=== PATIENT | female | born 1995 | race African-American/Black ===

== ENCOUNTER 2023-03-30 08:24 | Emergency (ER) | payer OTHER, SELFPAY ==
[2023-03-30] VITALS (7 sets, daily range): BP systolic 114–150; BP diastolic 67–74; PULSE 89–105; RESP 16–18; TEMP 37.3–37.6; O2SAT 98–99; BMI 32.1
--- NOTE | 2023-03-30 08:54 | ED.FEVER ---
HPI - Fever General Chief Complaint: Fever Stated Complaint: 17 wks body aches fever night sweats Time Seen by Provider: 03/30/23 08:47 Source: patient Mode of arrival: Ambulatory Limitations: no limitations History of Present Illness HPI Narrative: 27-year-old female proximally 17 weeks by dates has had prior ultrasound who presents with complaint of fevers, nasal congestion cough cold, headache, muscle aches that has been going on for last several days. Patient reports temp up to 102 F she states her [id number] child at home has been ill. She tried to get into see with her primary care physician but can not get an appointment until April. Patient denies any chest pain or pressure. No shortness of breath. No nausea or vomiting no other GI or urinary symptoms. Patient does note that she was tested positive for chlamydia and was treated 3 weeks ago. She is noticed some left lower quadrant discomfort over the past week not getting any worse or better. It is intermittent but she notices more when she pushes on that area. She has noted some brown flecks when she wipes in the genital area but no dysuria, urgency or frequency no other discharge. Normal stools. Related Data Previous Rx's Medication Instructions Recorded amoxicillin 500 mg tablet 500 mg PO TID 7 days #21 tabs 03/30/23 Allergies Allergy/AdvReac Type Severity Reaction Status Date / Time No Known Drug Allergies Allergy Verified 03/30/23 08:36 Review of Systems Review of Systems ROS Unobtainable: All systems reviewed & are unremarkable except as noted in HPI and below Patient History Social History Smoking Status: Never smoker Smoking Status: Never smoker Substance Use Type: does not use Exam Narrative Exam Narrative: GEN: well nourished, well appearing female, alert and oriented x 3, patient appears to be in mild distress. HEENT: Atraumatic, pupils are equal round reactive to light, extraocular movements are intact, patient has bilateral nasal congestion, TMs are clear, retracted with slight fluid, no erythema, there is no conjunctival pallor. Throat is clear without any exudates, erythema, tonsillar enlargement or uvular deviation HEART: Regular rate and rhythm without murmur, clicks, rubs. LUNGS:Lungs clear to auscultation, no wheezes, rales, crackles, chest moves symmetrically ABD:bowel sounds normal, soft, non-tender on examination, gravid, no guarding, rebound, rigidity, no masses noted, no hepatosplenomegaly :No CVA tenderness MSCL: Non-tender, no muscle atrophy, muscles strength 5/5 upper and lower extremities, full range of motion, normal gait NEURO:CN 2-12 intact, sensation normal SKIN: No rash, erythema or other skin changes Initial Vital Signs Initial Vital Signs: Vital Signs Temperature 99.2 F 03/30/23 08:30 Pulse Rate 99 H 03/30/23 08:30 Respiratory Rate 18 03/30/23 08:30 Blood Pressure 125/72 03/30/23 08:30 Pulse Oximetry 98 03/30/23 08:30 Oxygen Delivery Method Room Air 03/30/23 08:30 Course Orders Ordered: ED Orders 03/30/23 09:06 OB <= 14 weeks fetus Stat 03/30/23 09:17 Chlamydia Gonorrhea PCR -URINE Stat Respiratory Panel (Film Array) Stat 03/30/23 09:19 UA Complete [Urinalysis and Microscopic] Stat Urine Culture Stat Vital Signs Vital signs: Vital Signs - 8 hr 03/30/23 11:07 03/30/23 11:30 03/30/23 12:00 Temperature Pulse Rate 89 101 H 102 H Respiratory Rate 18 16 16 Blood Pressure 114/71 128/74 119/67 Pulse Oximetry 99 99 99 Oxygen Delivery Method Room Air Room Air Room Air 03/30/23 12:45 Temperature 99.7 F H Pulse Rate 98 H Respiratory Rate 16 Blood Pressure 124/72 Pulse Oximetry 98 Oxygen Delivery Method Room Air MDM - Fever Lab Data Labs: Lab Results 03/30/23 03/30/23 Range/Units 09:17 09:19 Urine Color Yellow Urine Appearance Sl cloudy Urine pH 5.5 (4.5-8.0) Ur Specific [place] 1.025 (1.000-1.035) Urine Protein Trace H (Negative) Urine Glucose (UA) Negative (Negative) g/dL Urine Ketones Trace H (NEGATIVE) Urine Occult Blood Trace-intact (Negative) Urine Nitrate Negative (Negative) Urine Bilirubin Negative (NEGATIVE) Urine Urobilinogen 0.2 (0.2) E.U./dL Ur Leukocyte Esterase 1+ H (NEGATIVE) Urine RBC 1-5/hpf (0-5/HPF) Urine WBC 5-10/hpf H (0-5/HPF) Ur Squamous Epith Cells 5-10 /hpf H (0-5/HPF) Urine Bacteria Few (2-10) H (None) Ur Culture Indicated? Specimen cultured Chlamy pneumoniae PCR Not detected (Not Detect) Adenovirus (PCR) Not detected (Not Detect) B.parapertussis DNA PCR Not detected (Not Detecte) Ur Chlamydia DNA (PCR) Detected H Coronavirus OC43 (PCR) Not detected (Not Detect) Coronavirus HKU1 (PCR) Not detected (Not Detect) Coronavirus 229E (PCR) Not detected (Not Detect) SARS-CoV-2 (PCR) Not detected (Not Detecte) Coronavirus NL63 (PCR) Not detected (Not Detect) Human Metapneumovir PCR Not detected (Not Detect) Influenza Type A (PCR) Not detected (Not Detect) Influenza Type B (PCR) Detected H (Not Detect) M. pneumoniae (PCR) Not detected (Not Detect) Parainfluenza 1 (PCR) Not detected (Not Detect) Parainfluenza 2 (PCR) Not detected (Not Detect) Parainfluenza 3 (PCR) Not detected (Not Detect) Parainfluenza 4 (PCR) Not detected (Not Detect) RSV (PCR) Not detected (Not Detect) Entero/Rhino (PCR) Not detected (Not Detect) N gonorrhoeae DNA (PCR) Not detected Imaging Data US - OB: Radiologist's Impression: [place] [address] Ultrasound Report Signed Patient: Margaret Christensen MR#: [id number] : 1995 Acct:[id number] Age/Sex: 27 / F Date of Service: 03/30/23 Loc: ED Accession Number: [id number] Procedure: US OB <= 14 weeks fetus Ordering Provider: Joleen Garcia D.O. PROCEDURE: US OB <= 14 WEEKS FETUS INDICATIONS: LLQ pain, 17 weeks OUTSIDE/PRIOR DATING DATA: Last menstrual period (LMP): December 04, 2022. LMP-based estimated date of delivery (STANISLAW): September 10, 2023. First dating scan (date and location): 02/16/23, [facility]. Estimated date of delivery (STANISLAW) from first dating scan: September 12, 2023. TECHNIQUE: Real-time scanning was performed of the fetus, with image documentation and biometric measurements. COMPARISON: [facility] Ultrasound, US, US OB < 14 WEEKS, 02/16/2023, 16:13. FINDINGS: General: A single living intrauterine gestation is present. Presentation: Breech. Placenta: Placental position is posterior , without previa. Amniotic fluid index: Subjectively within normal limits. heart rate: 163 beats per minute. Maternal cervical canal: 3.3 cm long. Normal lower limit is 2.5 cm. Miscellaneous: There is a 7.2 x 2.1 x 1.3 cm venous [place] with lobulated margins. IMPRESSION: 1. Single live intrauterine gestation in breech position. 2. Relatively large placental venous [place] with lobulated margins as above. We strive to produce accurate, complete, and clear reports of imaging services. To assist us in improving patient care, this report was composed using standard report templates and voice recognition software. Therefore, it may contain abnormal punctuation, insertions and/or omissions. Occasional wrong-word or sound-alike substitutions may occur. Though we review the report and make efforts to correct it, we do recommend that the report be read carefully in proper context to recognize any text inaccuracies. Dictated by: Tierra Barajas M.D. on 03/30/2023 at 10:03 Approved by: Tierra Barajas M.D. on 03/30/2023 at 10:07 [facility] Narrative Medical decision making narrative: 27-year-old female with recent upper respiratory symptoms cold cough nasal congestion headache some chest tightness and muscle aches. Patient clinically appears to have likely viral syndrome. She does have a child at home who has symptoms as well. She notes that she has also had some left lower quadrant tenderness for the past week, she is 17 weeks . Denies any GI or urinary symptoms but does note she tested positive for chlamydia proximally were to 3 weeks ago was treated with antibiotics. After discussion plan for respiratory panel, will obtain OB ultrasound she has been having care. We will retest for gonorrhea chlamydia as patient is concerned. Respiratory panel is positive for influenza B, with patient offered Tamiflu. She defers, discussed risk/benefits. GC is positive chlamydia. Negative for gonorrhea, UA was cultures. OB ultrasound shows large placental lakes 7.2 x 2.1 x 3.1 cm with lobulated margins. Discussed with OBGYN follow up findings from above. They would agree with plan to repeat azithromycin and/or the amoxicillin and pelvic rest with follow up with OB to continue to monitor. Discussed findings with patient we will hold off on Tamiflu, will do amoxicillin. Patient had azithromycin 1gram. States that her partner was treated, was tested and reportedly tested negative after treatment. She states he has only had 1 sexual contact since after they were both treated and waited a week. She was aware that there was some bleeding from before unsure of the child. Discussed pelvic rest and need for follow-up. Discharge Plan Departure Patient Disposition: Home Clinical Impression: Influenza B Instructions: DI for Influenza -- Adult Activity Restrictions/Additional Instructions: You did test positive for Influenza B today, influenza typically last 7-10 days total. You also tested for chlamydia on your test today, your gonorrhea test was negative. You were given antibiotics for your infection. Make sure to follow-up with your OBGYN to make sure that you are rechecked and test negative. No sexual activity for at least 1 week after completing antibiotics. Any partners need to be notified and treated prior to sexual activity. Your ultrasound does show some blood, it is 7.2 x 2.1 x 3.1 cm with lobulated margins. Share this information with your supervising bailiff and a copy of your report is included. Make sure you are drinking plenty of fluids. You can take Tylenol up to a 1000 mg every 6 hours as needed for headaches or fevers. Prescription for amoxicillin, 1 tablet 3 times daily times 7 days [facility] [place]. Please return for new or worsening symptoms, increasing abdominal back or flank pain, new vaginal bleeding, new chest pain, shortness of breath, nausea or vomiting, or other new or worsening GI symptoms. Prescriptions: New amoxicillin 500 mg tablet 500 mg PO TID 7 Days Qty: 21 0RF Stand Alone Forms: Patient Portal/API, Work Release Note
--- NOTE | 2023-03-30 09:06 | DI.US.S_ITS ---
PROCEDURE: US OB <= 14 WEEKS FETUS INDICATIONS: LLQ pain, 17 weeks OUTSIDE/PRIOR DATING DATA: Last menstrual period (LMP): December 04, 2022. LMP-based estimated date of delivery (STANISLAW): September 10, 2023. First dating scan (date and location): 02/16/23, [facility]. Estimated date of delivery (STANISLAW) from first dating scan: September 12, 2023. TECHNIQUE: Real-time scanning was performed of the fetus, with image documentation and biometric measurements. COMPARISON: [facility] Ultrasound, US, US OB < 14 WEEKS, 02/16/2023, 16:13. FINDINGS: General: A single living intrauterine gestation is present. Presentation: Breech. Placenta: Placental position is posterior , without previa. Amniotic fluid index: Subjectively within normal limits. heart rate: 163 beats per minute. Maternal cervical canal: 3.3 cm long. Normal lower limit is 2.5 cm. Miscellaneous: There is a 7.2 x 2.1 x 1.3 cm venous [place] with lobulated margins. IMPRESSION: 1. Single live intrauterine gestation in breech position. 2. Relatively large placental venous [place] with lobulated margins as above. We strive to produce accurate, complete, and clear reports of imaging services. To assist us in improving patient care, this report was composed using standard report templates and voice recognition software. Therefore, it may contain abnormal punctuation, insertions and/or omissions. Occasional wrong-word or sound-alike substitutions may occur. Though we review the report and make efforts to correct it, we do recommend that the report be read carefully in proper context to recognize any text inaccuracies. Dictated by: Tierra Barajas M.D. on 03/30/2023 at 10:03 Approved by: Tierra Barajas M.D. on 03/30/2023 at 10:07
[2023-03-30 10:13] LABS: Adenovirus Not Detected (Not Detect); B. parapertussis Not Detected (Not Detecte); Bordetella pertussis Not Detected (Not Detect); Chlamydophila pneumoniae Not Detected (Not Detect); Coronavirus 229E Not Detected (Not Detect); Coronavirus HKU1 Not Detected (Not Detect); Coronavirus NL 63 Not Detected (Not Detect); Coronavirus OC43 Not Detected (Not Detect); Human Metapneumovirus Not Detected (Not Detect); Human Rhinovirus/Enterovirus Not Detected (Not Detect); Influenza A Not Detected (Not Detect); Influenza B Detected (Not Detect); Mycoplasma pneumoniae Not Detected (Not Detect); Parainfluenza Virus 1 Not Detected (Not Detect); Parainfluenza Virus 2 Not Detected (Not Detect); Parainfluenza Virus 3 Not Detected (Not Detect); Parainfluenza Virus 4 Not Detected (Not Detect); Respiratory Syncytial Virus Not Detected (Not Detect); SARS- CoV-2 Not Detected (Not Detecte)
[2023-03-30 10:14] LABS: Appearance Urine UA SL CLOUDY; Bilirubin Urine UA NEGATIVE (NEGATIVE); Color Urine UA YELLOW; Glucose Urine UA NEGATIVE (Negative); Ketones Urine UA TRACE (NEGATIVE); Leukocyte Esterase Urine UA 1+ (NEGATIVE); Nitrite Urine UA NEGATIVE (Negative); Occult Blood Urine UA TRACE-INTACT (Negative); Protein Urine UA TRACE (Negative); Specific Gravity Urine UA 1.025 (1.000-1.035); Urobilinogen Urine UA 0.2 E.U./dL (0.2)
[2023-03-30 10:16] LABS: pH Urine UA 5.5 (4.5-8.0)
[2023-03-30 10:19] LABS: Bacteria Urine Few (2-10); Culture Indicated Urine Specimen Cultured; RBC Urine 1-5/HPF (0-5/HPF); Squamous Epithelial Cell Urine 5-10 /HPF (0-5/HPF); WBC Urine 5-10/HPF (0-5/HPF)
[2023-03-30 11:20] LABS: Urine Chlamydia DETECTED; Urine N gonorrhoeae NOT DETECTED
== END 2023-03-30 12:54 | disposition home or self-care (01) ==
PROVIDERS: Emergency Provider Emergency Medicine
DX: O98.812 Other maternal infectious and parasitic diseases complicating pregnancy, second trimester (principal); J10.1 Influenza due to other identified influenza virus with other respiratory manifestations; R07.9 Chest pain, unspecified; Z3A.17 17 weeks gestation of pregnancy; Z20.822 Contact with and (suspected) exposure to COVID-19
CPT/HCPCS: 76801; 81001; 87077; 87086; 87147; 87491; 87591; 87633; 99283

== ENCOUNTER → 2023-06-24 12:48 | Outpatient (CLI) | payer OTHER, SELFPAY ==
[2023-06-24 14:47] LABS: Hematocrit 36.5 % (36-46)
[2023-06-24 14:49] LABS: GTT (PREG) 1 Hour PP 50gm Dose 145 mg/dL (76-139)
[2023-06-24 15:54] LABS: Urine N gonorrhoeae NOT DETECTED
[2023-06-24 15:55] LABS: Urine Chlamydia NOT DETECTED
== END ==
PROVIDERS: Referring Provider Student in an Organized Health Care Education/Training Program; Visit Provider Student in an Organized Health Care Education/Training Program
DX: Z3A.26 26 weeks gestation of pregnancy (principal); O98.819 Other maternal infectious and parasitic diseases complicating pregnancy, unspecified trimester; A74.9 Chlamydial infection, unspecified; Z3A.25 25 weeks gestation of pregnancy
CPT/HCPCS: 36415; 82950; 85014; 85018; 86900; 86901; 87491; 87591

== ENCOUNTER → 2023-07-07 09:57 | Outpatient (CLI) | payer OTHER, SELFPAY ==
[2023-07-07 12:38] LABS: Glucose 1 Hour Gest 123 mg/dL (76-180)
[2023-07-07 12:38] LABS: Glucose Fasting Gestational 63 mg/dL (76-95)
[2023-07-07 13:16] LABS: Glucose Tol Interp,Gestational INTERPRETATION
[2023-07-07 13:53] LABS: Glucose 2 Hour Gest 84 mg/dL (76-155)
[2023-07-07 14:02] LABS: Glucose 3 Hour Gest 106 mg/dL (76-140)
== END ==
LOC: LAB 09:58
PROVIDERS: Referring Provider Student in an Organized Health Care Education/Training Program; Visit Provider Student in an Organized Health Care Education/Training Program
DX: O99.810 Abnormal glucose complicating pregnancy (principal)
CPT/HCPCS: 36415; 82951; 82952

== ENCOUNTER → 2023-08-16 12:35 | Outpatient (CLI) | payer OTHER, SELFPAY | PROVIDERS: Visit Provider Obstetrics & Gynecology | DX: Z34.83 Encounter for supervision of other normal pregnancy, third trimester (principal); R82.90 Unspecified abnormal findings in urine; Z3A.36 36 weeks gestation of pregnancy | CPT/HCPCS: 87086; 87653 ==

== ENCOUNTER → 2023-08-31 11:36 | Outpatient (CLI) | payer OTHER, SELFPAY ==
--- NOTE | 2023-08-31 11:38 | DI.US.S_ITS ---
PROCEDURE: US OB LIMITED INDICATIONS: GROWTH CHECK OUTSIDE/PRIOR DATING DATA: Last menstrual period (LMP): December 04, 2022. LMP-based estimated date of delivery (STANISLAW): September 10, 2023. First dating scan (date and location): February 16, 2023. Estimated date of delivery (STANISLAW) from first dating scan: September 12, 2023. The calculations are made using the ultrasound STANISLAW of September 10, 2023. TECHNIQUE: Real-time scanning was performed of the fetus, with image documentation and biometric measurements. Endovaginal scanning: Not performed COMPARISON: None. FINDINGS: General: A single living intrauterine gestation is present. Presentation: Vertex. Placenta: Placental position is posterior/fundal , without previa. Amniotic fluid index: 7.7 cm, normal range is 5-24 cm. Single deepest vertical pocket is 3.4 cm. heart rate: 150 beats per minute. Maternal cervical canal: 4.5 cm long. Normal lower limit is 2.5 cm. biometrics: Biparietal diameter: 8.7 cm, 35 weeks 0 days Head circumference: 31.4 cm, 35 weeks 1 day Abdominal circumference: 36.2 cm, 40 weeks 1 day Femur length: 7.1 cm, 36 weeks 3 days Clinically estimated gestational age: 38 weeks 4 days Composite gestational age from present scan: 36 weeks 5 days Estimated weight and percentile: 3088 g, 53% Other: Not applicable. IMPRESSION: 1. Single live intrauterine gestation with a composite gestational age of 36 weeks, 5 days which is concordant with dates by initial scan. 2. Estimated weight percentile of 53%. We strive to produce accurate, complete, and clear reports of imaging services. To assist us in improving patient care, this report was composed using standard report templates and voice recognition software. Therefore, it may contain abnormal punctuation, insertions and/or omissions. Occasional wrong-word or sound-alike substitutions may occur. Though we review the report and make efforts to correct it, we do recommend that the report be read carefully in proper context to recognize any text inaccuracies. Dictated by: Tierra Barajas M.D. on 08/31/2023 at 14:21 Approved by: Tierra Barajas M.D. on 08/31/2023 at 14:25
== END ==
LOC: US 11:36
PROVIDERS: Referring Provider Obstetrics & Gynecology; Visit Provider Obstetrics & Gynecology
DX: O26.843 Uterine size-date discrepancy, third trimester (principal); Z3A.36 36 weeks gestation of pregnancy
CPT/HCPCS: 76815

== ENCOUNTER 2023-09-12 08:52 | Outpatient (CLI) | payer OTHER, SELFPAY ==
--- NOTE | 2023-09-12 16:31 | P.TNLD_ITS ---
Visit Information Visit Information Date of evaluation: 09/12/23 Primary OB Provider: Alli Barnett On-call OB Provider: Tina Art Reason for Evaluation: Yes non-stress test Comments/Additional reasons for admission: Unable to be seen in office secondary to provider schedule change, pt sent to for NST and cervical check Vital Signs Vital Signs: maternal VSS per OBIX record PFSH Medical History depression Surgical History Anesthesia [place] teeth extracted Family History Father Hypertension Family/Other Breast cancer Mother Prediabetes History of bipolar disorder Grandfather Stroke Social History marital status: unmarried,single number of children: 1 household members: children and other (mother) lives independently: Yes caregiver/support person: Yes housing: [facility] ([facility]) pets and animals: No education level: college (some college) occupational status: employed (active duty [employer]) current occupational exposures/hazards: No (not since Dx) special josue needs: No travel history: over 6 months ago seatbelt use: always water heater temp set < 120 deg: No working smoke detector in home: Yes fire extinguisher in home: No carbon monox detector in home: No firearms in home: No do you feel safe at home: Yes Smoking Status: Never smoker second hand exposure: Yes (pt's mother smokes, not in the house or the car) alcohol intake: never substance use type: does not use during the past year weight has: other well-balanced diet: rarely or never daily servings fruits/ve-1 caffeine: Yes (very occasional cup coffee) Type(s) of exercise: walking Review of Systems Review of Systems Narrative: pt states increasing discomforts of , denies vaginal bleeding, LOF. ROS: Yes All systems reviewed with the patient and are negative except as otherwise documented Exam Vital Signs (past 8 hours): BP 130/78 HR 72 Narrative Exam Narrative: comfortable appearing, resting in bed Const General: cooperative Nutritional Appearance: obese Orientation: alert, awake and oriented x3 Limitations: mental status not altered HENMT Head: normal to inspection Neck Neck: normal visual inspection Cardio Rhythm: regular rhythm Pulses: normal peripheral pulses GI Inspection: normal to inspection Other: gravid, oumar cephalic 7.5# Other: cl/thk/hi - head remains ballotable Skin General: no rashes or lesions noted Neuro General: patient alert, patient awake and patient oriented x3 Extrem General: normal to inspection Psych Appearance: grossly normal Mental Status: mental status grossly normal Speech and Movement: speech and movement normal Judgment: judgment good Evaluation Evaluation Baseline heart rate: 130 Variability: Moderate (11-25) monitor accelerations: Present Monitor Decelerations: Absent Category of Tracing: Reactive Status: Category l Diagnosis, Plan/Disposition Final Diagnosis (1) Encounter for supervision of other normal , unspecified trimester: Status: Acute Plan/Disposition Plan: 28yo at 40w2d presents to for late term NST Cat 1 tracing with reactive NST maternal VSS/afebrile reviewed exam findings today, consistent with Dr. Barnett's last office exam - head is not engaged within the pelvis at this time plan for interval NST in 48/72h, schedule IOL at that time if indicated strict FM/labor precautions reviewed known GBS+ OB Disposition: home
== END 2023-09-12 10:05 | disposition home or self-care (01) ==
LOC: LABOR 09:04 → OB 09-15 08:23
PROVIDERS: Referring Provider Obstetrics & Gynecology; Visit Provider Obstetrics & Gynecology
DX: O48.0 Post-term pregnancy (principal); Z3A.40 40 weeks gestation of pregnancy
CPT/HCPCS: 59025; G0378; G0379

== ENCOUNTER 2023-09-15 09:25 | Outpatient (CLI) | payer OTHER, SELFPAY | END 2023-09-15 10:42 | disposition home or self-care (01) | LOC: LABOR 09:31 → OB 09-19 06:11 | PROVIDERS: Referring Provider Family Medicine; Visit Provider Family Medicine | DX: O48.0 Post-term pregnancy (principal); Z3A.40 40 weeks gestation of pregnancy | CPT/HCPCS: 59025; 76815; G0378; G0379 ==

== ENCOUNTER 2023-09-17 20:07 | Outpatient (CLI) | payer OTHER, SELFPAY | END 2023-09-17 21:13 | disposition home or self-care (01) | LOC: LABOR 22:36 → OB 09-19 06:13 | PROVIDERS: Referring Provider Obstetrics & Gynecology; Visit Provider Obstetrics & Gynecology | DX: O36.8130 Decreased fetal movements, third trimester, not applicable or unspecified (principal); O48.0 Post-term pregnancy; Z3A.41 41 weeks gestation of pregnancy | CPT/HCPCS: 59025; G0378; G0379 ==

== ENCOUNTER 2023-09-20 19:51 | Inpatient (IN) | payer OTHER, SELFPAY ==
[2023-09-20 20:06] VITALS: BP 140/79
[2023-09-20] MEDS: LACTATED RINGERS 1,000 ML 100 ML IV (20:40)
[2023-09-20] MEDS: miSOPROStoL 25 MCG TABLET 50 MCG VAG (20:57)
[2023-09-20 21:23] LABS: Add Manual Diff / Slide Review NO; Basophils Absolute Auto 0 /uL (0-100); Basophils Percent Auto 0.4 % (0-2); Eosinophils Absolute Auto 100 /uL (0-450); Eosinophils Percent Auto 0.7 % (2-4); Hemoglobin 11.9 g/dL (12.0-16.0); Lymphocytes Absolute Auto 2000 /uL (1100-4500); Lymphocytes Percent Auto 22.9 % (25-40); Mean Corpuscular Hemoglobin 27.1 PG (26-34); Mean Corpuscular Volume 81.9 fL (80-100); Monocytes Absolute Auto 1100 /uL (0-900); Monocytes Percent Auto 12.9 % (3-14); Neutrophils Absolute Auto 5500 /uL (1500-7000); Neutrophils Percent Auto 63.1 % (50-75); Platelet Count 120 X10^3/uL (150-400); Red Cell Distribution Width 15.7 % (11.6-14.8); White Blood Cell Count 8.7 X10^3/uL (4.5-11.0)
[2023-09-20] MEDS: ZOLPIDEM 5 MG TABLET PO (23:25)
[2023-09-20] MEDS: AMPICILLIN 1,000 MG in SODIUM CHLORIDE 0.9% 100 ML 200 MG IV (23:31)
[2023-09-21] VITALS (7 sets, daily range): BP systolic 94–127; BP diastolic 44–81; PULSE 90–111; RESP 14–24; TEMP 36.1–36.5; O2SAT 98–99
[2023-09-21] MEDS: miSOPROStoL 25 MCG TABLET 50 MCG VAG ×2 (03:20→08:28)
[2023-09-21] MEDS: AMPICILLIN 2,000 MG in SODIUM CHLORIDE 0.9% 100 ML 200 MG IV (03:20)
--- NOTE | 2023-09-21 07:12 | PM.OBHP.1 ---
OB HPI Date/Time Date of admission: 09/20/23 Date Patient Seen: 09/21/23 Time Patient Seen: 07:13 History of Present Condition Chief complaint: IUP, 41+4 wks, GBS +, admitted for ripening/induct : 3 Para: 1 Estimated Date of Delivery: 10/10/23 Estimated Gestational Age (weeks): 41+4 Narrative: Margaret Christensen is a 28 year old , admitted now at 41+ 4 weeks gestational age for cervical ripening and induction due to postdatism. course has been largely uneventful with solid early dating and appropriate milestones throughout. She had an elevated 1 hour GDM screen but a completely normal 3 hour GTT. GBS is positive. Indications Indication for induction OB: post dates History of Present care: good care Dating criteria: LMP confirmed by 1st trimester US Ultrasounds: normal 1st trimester US and normal mid trimester US Obstetrical complications: none Medical complications: none Preadmission Labs Blood type: O (+) positive -: Antibody screen: negative, GBS status: positive, HBsAG: negative, HIV: negative and RPR/VDLR: negative -: Chlamydia screen: not detected and Gonorrhea screen: not detected -: Rubella: immune and Varicella: immune HCT: 36.0 HCAB: negative PAP: Normal Quad screen: Normal (AFP testing negative) Cell-free DNA: Low risk male infant 1 hr GTT: 145 3 hr GTT: 1 hr (123), 2 hr (84) and 3 hr (106) Fasting blood glucose: 63 Prior (ies) History: x 1 Evaluation Evaluation Baseline heart rate: 135 Variability: Average (6-10) monitor accelerations: Present Monitor Decelerations: Absent Contraction Frequency (minutes): 8 Uterine Contraction Intensity: Mild Category of Tracing: Reactive Status: Category l PFSH Medical History depression Surgical History Anesthesia [place] teeth extracted Family History Father Hypertension Family/Other Breast cancer Mother Prediabetes History of bipolar disorder Grandfather Stroke Social History marital status: unmarried,single number of children: 1 household members: children and other (mother) lives independently: Yes caregiver/support person: Yes [facility] pets and animals: No education level: college (some college) occupational status: employed (active duty [employer]) current occupational exposures/hazards: No (not since Dx) special josue needs: No travel history: over 6 months ago seatbelt use: always water heater temp set < 120 deg: No working smoke detector in home: Yes fire extinguisher in home: No carbon monox detector in home: No firearms in home: No do you feel safe at home: Yes Smoking Status: Never smoker second hand exposure: Yes (pt's mother smokes, not in the house or the car) alcohol intake: never substance use type: does not use during the past year weight has: other well-balanced diet: rarely or never daily servings fruits/ve-1 caffeine: Yes (very occasional cup coffee) Type(s) of exercise: walking Meds Home Medications and Allergies Home Medications Medication Instructions Recorded Confirmed Type [id number] 400 mcg-om3 35 mg-dha 25 tab PO 05/25/23 09/07/23 History mg-epa 5 mg-fish oil chewable tablet Allergies Allergy/AdvReac Type Severity Reaction Status Date / Time No Known Drug Allergies Allergy Verified 09/07/23 11:43 Review of Systems Review of Systems Narrative: Problem-specific ROS positives included in HPI OB Exam Vital signs Blood Pressure: 113/56 Pulse Rate: 90 Temperature: 97.7 F HENMT Head: normal to inspection, normocephalic and atraumatic Eyes General: appearance normal, both eyes and all related structures Resp Effort & Inspection: normal respiratory effort and able to speak in complete sentences Auscultation: clear to auscultation bilaterally Cardio Rate: regular rate Rhythm: regular rhythm Heart Sounds: S1 normal, S2 normal and no murmurs Extremities Lower extremity: Yes normal to inspection GI Inspection: normal to inspection Palpation: Yes soft and Yes no hepatosplenomegaly Uterus Location (Fundal Height): 38 Presentation: vertex Estimated Weight (lbs): 8 Objective Labs 09/20/23 20:40 Labs: Laboratory Results - last 24 hr 09/20/23 20:40 WBC 8.7 RBC 4.40 Hgb 11.9 L Hct 36.0 MCV 81.9 MCH 27.1 MCHC 33.0 RDW 15.7 H Plt Count 120 L Neut % (Auto) 63.1 Lymph % (Auto) 22.9 L [place] % (Auto) 12.9 Eos % (Auto) 0.7 L Baso % (Auto) 0.4 Neut # (Auto) 5500 Lymph # (Auto) 2000 [place] # (Auto) 1100 H Eos # (Auto) 100 Baso # (Auto) 0 Blood Type O Positive Antibody Screen Negative Assessment and Plan Assessment and Plan Assessment and Plan narrative: ASSESSMENT 1. Intrauterine , 40 1+4 weeks gestational age 2. Post dates 3. GBS positive PLAN 1. Admit for ripening and induction 2. See admission orders
[2023-09-21] MEDS: AMPICILLIN 1,000 MG in SODIUM CHLORIDE 0.9% 100 ML 200 MG IV ×3 (07:15→15:17)
[2023-09-21] MEDS: ONDANSETRON 4 MG/2 ML INJ IV (14:11)
[2023-09-21] MEDS: LACTATED RINGERS 1,000 ML 100 ML IV ×2 (14:58→21:16)
--- NOTE | 2023-09-21 15:15 | PM.AN.REGBLK ---
[facility] <Vonnie Stearns CRNA - Last Filed: 09/21/23 22:41> Pre-procedure Procedure: Continuous Lumbar Epidural for L&D Attending OB provider: Alli Barnett PMH/ROS narrative: with PMH GERD during , chronic borderline thrombocytopenia per pt requesting labor analgesia. Hx: No personal or family history of anesthesia problems. PSH/Anesthesia history narrative: See pre-anesthesia eval Exam narrative: See pre anesthesia eval ASA Class: II Labs: Hct 36.0 % (36-46) 09/20/23 20:40 Plt Count 120 X10^3/uL (150-400) L 09/20/23 20:40 Medications: Current Medications Generic Name Dose Route Start Last Admin Trade Name Freq PRN Reason Stop Dose Admin Calcium Carbonate 1,000 mg 09/20/23 20:06 Calcium Carbonate 500 Mg Tab PO Q4HR PRN Dyspepsia Carboprost Tromethamine 250 mcg 09/20/23 20:06 Carboprost 250 Mcg/Ml Ampul IM Q90M PRN Bleeding Diphenhydramine HCl 25 mg 09/21/23 14:51 Diphenhydramine 50 Mg/Ml Vial IV 09/22/23 14:52 Q3HR PRN PRURITUS Diphenhydramine HCl 25 mg 09/21/23 14:52 Diphenhydramine 50 Mg/Ml Vial IV Q10M PRN Pruritis Docusate Sodium 200 mg 09/21/23 13:15 Docusate 100 Mg Capsule PO DAILY RAYMON Ephedrine Sulfate 10 mg 09/21/23 14:52 Ephedrine 50 Mg/Ml Vial IV Q5M PRN Blood pressure decrease more than 20% of baseline. Fentanyl 50 mcg 09/20/23 20:06 Fentanyl 100 Mcg/2 Ml Inj IV Q1H PRN Pain, Moderate (4-6) Lactated Ringer's 1,000 mls @ 100 mls/hr 09/20/23 20:15 09/21/23 14:58 Lactated Ringers IV 100 mls/hr CONT RAYMON Administration Oxytocin/Lactated Ringer's 30 unit in 500 mls @ 200 mls/hr 09/20/23 20:06 Oxytocin Premix IV CONT PRN Bleeding Protocol Oxytocin/Lactated Ringer's 30 unit in 500 mls @ 2 mls/hr 09/20/23 20:15 Oxytocin Premix IV TITRATE RAYMON Protocol 2 MILLIUNIT/MIN Ampicillin Sodium 1,000 mg/ 100 mls @ 200 mls/hr 09/21/23 00:00 09/21/23 11:20 Sodium Chloride IV 200 mls/hr Q4H RAYMON Administration Tranexamic Acid 1,000 mg/ 100 mls @ 600 mls/hr 09/20/23 20:06 Sodium Chloride IV NOW PRN Bleeding Sodium Chloride 1,000 mls @ 100 mls/hr 09/21/23 15:00 Normal Saline 0.9% IV 09/22/23 14:51 CONT RAYMON FENT 2MCG/ML BUPIV 0.125% EPI 200 mcg in 100 mls @ 6 mls/hr 09/21/23 15:00 Fentanyl/Bupiv/Ns 2mcg/Ml - 0.125% EPIDURAL CONT RAYMON Lidocaine HCl 20 ml 09/20/23 20:06 Lidocaine 1% 20 Ml INJ INTRA-OP PRN Post Delivery Methylergonovine Maleate 0.2 mg 09/20/23 20:06 Methylergonovine 0.2 Mg/Ml Vial IM NOW PRN Bleeding Methylergonovine Maleate 0.2 mg 09/20/23 20:06 Methylergonovine 0.2 Mg Tablet PO Q6HR PRN Heavy Bleeding Mineral Oil 30 ml 09/20/23 20:06 Mineral Oil 30 Ml Udc TOP PRN PRN Version Misoprostol 800 mcg 09/20/23 20:06 Misoprostol 200 Mcg Tablet CA NOW PRN Bleeding Misoprostol 400 mcg 09/20/23 20:06 Misoprostol 200 Mcg Tablet SL NOW PRN Bleeding Misoprostol 50 mcg 09/20/23 20:15 09/21/23 08:28 Misoprostol 25 Mcg Tablet VAG 50 mcg Q4H RAYMON Administration Naloxone HCl 0.2 mg 09/20/23 20:06 Naloxone 0.4 Mg/Ml Vial IV Q2MIN PRN Opiate Reversal Naloxone HCl 0.4 mg 09/21/23 14:51 Naloxone 0.4 Mg/Ml Vial IV Q2MIN PRN Opiate Reversal Ondansetron HCl 4 mg 09/20/23 20:06 09/21/23 14:11 Ondansetron 4 Mg/2 Ml Inj IV 4 mg Q4HR PRN Administration Nausea And Vomiting Ondansetron HCl 4 mg 09/21/23 14:51 Ondansetron 4 Mg/2 Ml Inj IV 09/22/23 14:52 Q6HR PRN Nausea Oxytocin 10 unit 09/20/23 20:06 Oxytocin 10 Unit/Ml Vial IM NOW PRN Bleeding Triamcinolone Acetonide 1 applic 09/21/23 13:30 Triamcinolone 0.1% Cream 15 Gm TOP BID PRN Irritation Zolpidem Tartrate 5 mg 09/20/23 20:07 09/20/23 23:25 Zolpidem 5 Mg Tablet PO 5 mg BEDTIME PRN Administration Sleep Allergies: Allergies Allergy/AdvReac Type Severity Reaction Status Date / Time No Known Drug Allergies Allergy Verified 09/07/23 11:43 Procedure Insertion date: 09/21/23 Insertion time: 14:26 Prep/Local: 1% lidocaine (5mL to interspace, chlorhexadine prep to back) Interspace: L3/L4 Patient position: sitting Needle: 18 gauge Hustead Loss of resistance with: saline MELVA at (cm): 8 Catheter placed at SKIN (cm): 12 Catheter in SPACE (cm): 4 Initial Medications TEST DOSE time: 14:29 TEST DOSE: 1.5% lidocaine with epinephrine 1:200k (mL): 3 BOLUS DOSE time: 14:24 BOLUS DOSE med: other (0.75mL .5% bupivacaine intrathecally via CSE prior to threading of epidural catheter) Infusion INFUSION: 0.125% bupivacaine and with fentanyl 2 mcg/mL Initial rate (mL/hr): 6 Subsequent interventions: 1610 Called for top off request and basal rate increase. Pt currently rating her contractions at 4/10 pain. Bolus dose of 5mL 0.25% bupivacaine given. Increased basal rate from 6mL/hr to 10mL/hr. -AB, DIRECTOR CLIENT 1838 5cc 0.25% marcaine and 100mcg fentanyl -JJ, DIRECTOR CLIENT 1930 Bolusing epidural for urgent due to HR decel. See anesthesia record for complete record. Post-procedure Anesthesia date START: 09/21/23 Anesthesia time START: 14:15 Anesthesia date END: 09/21/23 Anesthesia time END: 22:00 Post-procedure Anesthesia Assessment: Yes CV function: HR/BP stable, Yes Resp function: RR/sat/airway adequate, Yes Post-op hydration adequate, Yes Nausea & vomiting absent, Yes Temperature > 36 C and Yes Mental status appropriate <Kristie Malcolm CRNA - Last Filed: 09/21/23 18:47> Pre-procedure --: 5cc 0.25% marcaine and 100mcg fentanyl given via epidural catheter at 18:38. Patient complaining of lower anterior abdominal pain- Kristie Malcolm CRNA
--- NOTE | 2023-09-21 16:24 | PM.OBPNLAB ---
Date/Time Date Patient Seen: 09/21/23 Time Patient Seen: 16:24 Pain Control Pain control: tolerating well and epidural Pelvic Exam Dilation (cm): 9 Effacement (%): 100 station: -1 Amniotic membrane status: Ruptured (AROM, very light ) Contractions Contractions on admission: none Monitor mode: Internal ([place] external, FSE) Pitocin rate (mU/min): 0 Contraction pattern: Irregular Contraction phase: Resting Contraction intensity: Mild Status status: Category ll Heart Rate Baseline: 140 Monitor Accelerations: Present Monitor Decelerations: Early, Episodic and Variable Monitor Variability: Moderate Assessment and Plan Assessment: active labor Plan: continuous present management Comments: Close observation of Category 2 tracing as the vertex descends further and she enters the second stage of labor. Anticipate .
--- NOTE | 2023-09-21 18:29 | PM.OBPNLAB ---
Date/Time Date Patient Seen: 09/21/23 Time Patient Seen: 18:30 Pain Control Pain control: tolerating well and epidural Pelvic Exam Dilation (cm): 9 Effacement (%): 100 station: +1 Amniotic membrane status: Ruptured (AROM, very light ) Contractions Contractions on admission: none Monitor mode: Internal ([place] external, FSE) Pitocin rate (mU/min): 0 Contraction pattern: Irregular Contraction phase: Resting Contraction intensity: Mild Status status: Category ll Heart Rate Baseline: 130 Monitor Accelerations: Present Monitor Decelerations: Early, Recurrent and Variable Monitor Variability: Moderate Assessment and Plan Assessment: active labor Comments: Patient has had no change in cervical dilation for at least the last hour and a half. The infant is in direct OA position and is not asynclitic. Contractions are occurring every 3-4 minutes and are both painful and intense for the patient. At one point it seemed as though there was only an anterior lip but now there is a clear rim all the way around the vertex. In discussions with the patient, she states her 1st delivery was 6 lb 9 oz and she did not encounter any slow labor during the course of her delivery process. She believes this baby however is substantially larger and estimated weight by Diogo's is in the range of 8-8.5 lb. Persistent category 2 heart rate tracing precludes augmentation with Pitocin therefore insertion of IUPC seems unnecessary. Discussed the possible for delivery with the patient and her family. Re-evaluate in 30-45 minutes and if no further progress has been made insofar as dilation and/or descent, will recommend primary section.
--- NOTE | 2023-09-21 19:13 | P.PNOB_ITS ---
Date/Time Date Patient Seen: 09/21/23 Time Patient Seen: 19:14 Pain Control Pain control: tolerating well and epidural Pelvic Exam Dilation (cm): 9 Effacement (%): 100 station: +1 Amniotic membrane status: Ruptured (AROM, very light ) Comments: Direct OA position. Non-asynclitic. +caput. EFW 8.5#. Contractions Contractions on admission: none Monitor mode: Internal ([place] external, FSE) Pitocin rate (mU/min): 0 Contraction pattern: Irregular Contraction phase: Resting Contraction intensity: Mild Status status: Category ll Heart Rate Baseline: 12 Monitor Accelerations: Present Monitor Decelerations: Early, Late (Occasional), Recurrent and Variable Monitor Variability: Moderate Assessment and Plan Assessment: active labor Plan: Comments: Options regarding management in the face of secondary arrest of descent and dilatation as well as nonreassuring heart rate tracing discussed with the patient and her family. We discussed the potential risks complications, and benefits. After consideration of all options, the patient wishes to proceed to primary section for the aforementioned indications. OR/Anesthesia notified.
--- NOTE | 2023-09-21 19:19 | PM.PREOP ---
Pre-operative Note COVID-19 COVID-19 status: Not tested Interval Note History & Physical reviewed/Exam performed by Physician: Yes Changes to H&P: No
[2023-09-21] MEDS: FENT 2MCG/ML BUPIV 0.125% EPI 200 MCG/100 ML PLAST..BAG 6 MCG EPIDURAL (19:24)
[2023-09-21] MEDS: CEFAZOLIN 2 GM/100 ML PREMIX 100 ML IV (19:56)
[2023-09-21] MEDS: AZITHROMYCIN 500 MG in DEXTROSE 5% IN WATER 250 ML 250 MG IV (20:10)
--- NOTE | 2023-09-21 20:13 | SUR.OPER ---
Supine on Padded OR bed, head on pillow, safety belt at thigh, arms secured on padded arm boards at <90 degrees abduction. Bump under right buttock. Legs uncrossed with pillow under knees, gel pad to heels, tape over blanket to lower legs.
[2023-09-21] MEDS: TRANEXAMIC ACID 1,000 MG in SODIUM CHLORIDE 0.9% 100 ML 600 MG IV (21:15)
--- NOTE | 2023-09-21 21:17 | SUR.OPER ---
Viable baby boy born at 2020 on September 21, 2024.
--- NOTE | 2023-09-21 21:58 | PM.OBCS.1 ---
Operative Date/Time/Diagnoses Date of procedure: 09/21/23 Time of procedure: 20:00 Pre-op diagnosis: Intrauterine gestation, 41+5 weeks Secondary arrest of descent and dilatation due to cephalopelvic disproportion intolerance of labor Maternal thrombocytopenia GBS positive status Post-op diagnosis: same Procedure & Clinicians Procedure: Primary section (low transverse cervical) Same procedure as scheduled: Yes Indications: Margaret is a 28-year-old admitted for induction on 09/20/2023 at 41+ 4 weeks gestational age due to post-datism. She underwent cervical ripening with oral Cytotec and Pitocin was initiated on 05/2023. The patient progressed well after AROM and placement of epidural but experienced secondary arrest of descent and dilatation at 9 cm with the vertex never descended below +1 station. In addition the patient had an extended period of category 2 tracing with frequent deep variable decelerations, early decelerations, and periods bradycardia in the range of 90 beats per minute. After discussion with the patient and her family, the decision has been made to move to primary section for delivery with the aforementioned indications. Surgeon: Alli Barnett Screening Specialist: Bebeto Boss Reason for Screening Specialist: Screening Specialist required for the safe, effective, and timely completion of this surgery. Anesthesia Type: Spinal Operative Notes Findings: Viable male infant BW 3874 gms. (8 lbs. 8.7 oz.), Apgars 2/5/7, deeply impacted, delivered from the vertex presentation. Normal gravid anatomy. Closure Type: primary Specimen(s): cord blood Intraoperative meds administered: Ketorolac, Pitocin and Tranexamic acid Applied: Catheter Estimated Blood Loss (mL): 800 Blood products transfused: none Procedure in detail: With her informed written consent, the patient was taken to the operating room and placed in the supine position for a primary section procedure under epidural anesthesia, for the indication(s) above. The abdomen was prepped and draped in the usual manner for section and a pre-surgical timeout was taken per [facility] OR protocol. Once effective anesthesia was confirmed, a 15 cm transverse Pfannenstiel incision was made in the skin and taken down through the subcutaneous tissues to the deep fascia. The deep fascia was incised transversely, the rectus abdominal eyes bluntly and sharply, and the peritoneal cavity entered without difficulty. The lower uterine segment was visualized and the position/presentation palpated. A transverse incision at or above the vesicouterine reflection was made with Metzenbaum scissors and transverse hysterotomy performed near the midline. Amniotomy revealed meconium stained fluid. The incision was extended bilaterally with digital traction and the infant was delivered after being elevated from impacted vertex presentation. The was not vigorous at and therefore delayed cord clamping not performed. The placenta was delivered intact using gentle cord traction and fundal massage. Due to persistent patient discomfort despite re-dosing of her epidural and IV analgesia, the uterus could not be exteriorized and instead an Jaylen retractor was placed. The uterine cavity was then cleared of any clot/debris first with a sloppy wet lap tape followed by a dry lap tape. Ring forceps were then applied to the angles and the midline of the incised JD. A primary closure of the uterus was then accomplished with #1 CCGS in a running interlocking stitch followed by a 2nd layer of #1 CCGS in a running interlocking imbricating stitch. No additional sutures was/were required to achieve complete hemostasis. Once pelvic hemostasis was assured, the bladder flap and anterior peritoneum were closed with a running 2-0 Vicryl suture and the fascia closed with #1 Vicryl in a running stitch initiated at both angles and tying separately near the midline. The subcutaneous tissues were reapproximated with 2-0 plain catgut suture using inverted interrupted stitches. The skin edges were then brought together with 4-0 Monocryl in a subcuticular closure and the incision was reinforced with 1 Steri-Strips. An AquaCel dressing was applied and the patient transferred to PACU for recovery and subsequent transfer to the Center for recuperation. Complications: none [place] Baby 1: Gender: Male Presentation: vertex Position: Left Occiput Anterior Placental Delivery Description: Spontaneous Cord Vessel Description: 3 Vessels and Other (Shoulder cord) score (1 min): 2 score (5 min): 5 score (10 min): 7 weight: 8 lb 8.651 oz Post-operative Condition: stable Disposition: PACU Aftercare: routine postop
[2023-09-21] MEDS: HYDROMORPHONE 1 MG INJ IV ×2 (22:13→23:43)
[2023-09-21] MEDS: KETOROLAC 30 MG/ML VIAL IV (22:22)
[2023-09-21] MEDS: OXYCODONE IR 5 MG TABLET PO (22:38)
[2023-09-22] MEDS: diphenhydrAMINE 50 MG/ML VIAL 25 MG IV ×2 (01:33→04:53)
[2023-09-22] MEDS: HYDROMORPHONE 1 MG INJ IV (01:39)
[2023-09-22] MEDS: OXYCODONE IR 10 MG TABLET PO ×5 (02:51→20:12)
[2023-09-22] MEDS: ACETAMINOPHEN 325 MG TABLET 650 MG PO ×4 (04:27→23:36)
[2023-09-22] MEDS: KETOROLAC 30 MG/ML VIAL IV (04:27)
[2023-09-22] MEDS: DOCUSATE 100 MG CAPSULE PO (09:16)
[2023-09-22] MEDS: PRENATAL VIT,CALC/IRON/FOLIC 1 TABLET 1 TAB PO (09:16)
[2023-09-22 09:28] LABS: Add Manual Diff / Slide Review NO; Basophils Absolute Auto 100 /uL (0-100); Basophils Percent Auto 0.4 % (0-2); Eosinophils Absolute Auto 0 /uL (0-450); Eosinophils Percent Auto 0.2 % (2-4); Hematocrit 28.5 % (36-46); Hemoglobin 9.4 g/dL (12.0-16.0); Lymphocytes Absolute Auto 1500 /uL (1100-4500); Lymphocytes Percent Auto 12.1 % (25-40); Mean Corpuscular HGB Conc 32.9 % (30-36); Mean Corpuscular Hemoglobin 27.2 PG (26-34); Mean Corpuscular Volume 82.6 fL (80-100); Monocytes Absolute Auto 800 /uL (0-900); Monocytes Percent Auto 6.6 % (3-14); Neutrophils Absolute Auto 9800 /uL (1500-7000); Neutrophils Percent Auto 80.7 % (50-75); Platelet Count 91 X10^3/uL (150-400); Red Blood Cell Count 3.45 X10^6/uL (4.0-5.2); Red Cell Distribution Width 15.7 % (11.6-14.8); White Blood Cell Count 12.1 X10^3/uL (4.5-11.0)
--- NOTE | 2023-09-22 13:21 | P.PNOB_ITS ---
Subjective - OB Subjective Patient comments: incisional pain and tolerating diet baby status: doing well and nursing well (Some struggling with latching) [place] feeding status: exclusively breast feeding Date Patient Seen: 09/22/23 Time Patient Seen: 13:25 Interval history: Postoperative day 0 section for nonreassuring heart rate and 2nd degree arrest of descent and dilation Exam Vital Signs (past 8 hours): Blood pressure 125/73, pulse of 86, temperature 98.4? Oxygen Delivery Method Room Air Narrative Exam Narrative: Abdomen is soft, mildly distended. Uterus is firm, at U, appropriately tender. Dressing is clean, dry, intact. Mild lochia. Extremities without edema and nontender. Objective Labs 09/22/23 09:15 Labs: Laboratory Results - last 24 hr 09/22/23 09:15 WBC 12.1 H RBC 3.45 L Hgb 9.4 L Hct 28.5 L MCV 82.6 MCH 27.2 MCHC 32.9 RDW 15.7 H Plt Count 91 L Neut % (Auto) 80.7 H Lymph % (Auto) 12.1 L [place] % (Auto) 6.6 Eos % (Auto) 0.2 L Baso % (Auto) 0.4 Neut # (Auto) 9800 H Lymph # (Auto) 1500 [place] # (Auto) 800 Eos # (Auto) 0 Baso # (Auto) 100 Assessment & Plan Assessment and Plan (1) Acute on chronic blood loss anemia: Status: Acute (2) Delivery by section using transverse incision of lower segment of uterus: Problem details: 2nd degree arrest of descent and dilation with nonreassuring heart tones Status: Acute (3) Depression affecting : Status: Acute Plan day: 0 plan OB: routine postop care Comments: Patient is requesting restart of Zoloft that she is stopped in the 2nd trimester with a history of severe depression Time-Based Coding :: [TOTAL MINUTES] spent with patient and on the chart (including review of chart, obtaining history, exam, reviewing outside data, placing orders, documenting exam and treatment plan, and counseling patient) on [DATE].
[2023-09-22] MEDS: IBUPROFEN 600 MG TABLET PO ×2 (14:01→23:37)
[2023-09-22] MEDS: FERROUS SULFATE 325 MG TABLET PO (14:38)
[2023-09-22] MEDS: TRIAMCINOLONE 0.1% CREAM 15 GM 1 APPLIC TOP (15:15)
[2023-09-22] MEDS: SERTRALINE 50 MG TABLET PO (22:45)
[2023-09-23] MEDS: ACETAMINOPHEN 325 MG TABLET 650 MG PO (06:49)
[2023-09-23] MEDS: IBUPROFEN 600 MG TABLET PO (06:49)
[2023-09-23] MEDS: FERROUS SULFATE 325 MG TABLET PO (08:53)
[2023-09-23] MEDS: PRENATAL VIT,CALC/IRON/FOLIC 1 TABLET 1 TAB PO (08:53)
[2023-09-23] MEDS: DOCUSATE 100 MG CAPSULE PO (08:53)
[2023-09-23 10:32] VITALS: BP 131/78; PULSE 88; RESP 14; TEMP 36.9
--- NOTE | 2023-09-23 10:32 | PM.OBDS.1 ---
Discharge Providers Provider Date of admission: 09/20/23 19:51 Discharge Date: 09/23/23 Primary care physician: Ralph LECHUGA Provider Consults: 09/20/23 20:06 Consult to Anesthesiology Urgent Comment: Consulting Provider: Anesthesiologist Reason for consultation: Epidural Has provider been notified: No 09/21/23 22:34 Consult to Customer Engagement Manager Routine Comment: Discharge provider: Alli Barnett MD Summary Hospital Course Date Patient Seen: 09/23/23 Time Patient Seen: 10:33 Diagnoses: Intrauterine gestation, 41+5 weeks, delivered by primary section (low transverse cervical) Secondary arrest of descent and dilatation due to cephalopelvic disproportion intolerance of labor Maternal thrombocytopenia Anemia due to blood loss GBS positive status Hospital Course: Margaret was admitted on the evening of 09/20/2023 at 41+ 4 weeks gestational age for cervical ripening/induction due to post dateism. She progressed sufficiently with Cytotec orally so that Pitocin augmentation could be initiated on the morning of 09/21/2023. She progressed well with Pitocin, AROM demonstrating light meconium staining, and placement of continuous lumbar epidural. Patient however had secondary arrest of descent at +1 station and secondary arrest of dilatation at 9 cm. Despite position changes and optimization of maternal status, the had deep variable decelerations, occasional late decelerations which were non repetitive, early decelerations, but maintained normal variability throughout. Due to secondary arrest of descent and dilatation along with intolerance of labor, the decision was made to proceed to primary section on the evening of 09/21/2023. Details of the procedure well summarized on my operative note of that date. Following surgery both baby and mother have done extremely well with the mother experiencing prompt return of bowel and bladder function, she is ambulating independently, tolerating a regular diet, and her pain is well relieved with oral pain medications. She will be discharged at this time to home in an afebrile normotensive condition after counseling regarding precautionary symptoms, limitations of activity, medications, plans for follow-up which will be in 1 week. Medications at discharge will include resumption of vitamins, oxycodone 10 mg every 6 hours as needed for pain, dispensed 15 with no refills, and ibuprofen 600 mg p.o. q.6 hours as needed for pain, dispense 30 with 2 refills. Peripartum Data Delivery Method: Section Laceration Description: None Episiotomy description: None Procedures: Continuous lumbar epidural Primary section (low transverse cervical) complications: none 1: Gender: Male Disposition of : home Discharge Diagnosis (1) Acute on chronic blood loss anemia: Status: Acute (2) Delivery by section using transverse incision of lower segment of uterus: Status: Acute Problem Details: 2nd degree arrest of descent and dilation with nonreassuring heart tones (3) Depression affecting : Status: Acute Status at Discharge Cognitive/behavioral status at discharge: oriented Functional status at discharge: independent ambulation Overall status at discharge: patient is progressing back to baseline Time Spent with Patient Time attestation: Total time spent providing and/or coordinating discharge services: Time spent: Less than 30 minutes Objective Labs 09/22/23 09:15 Exam Vital Signs (past 8 hours): Oxygen Delivery Method Room Air Const General: cooperative and comfortable Nutritional Appearance: average body habitus Orientation: alert and oriented x3 HENMT Head: normal to inspection, atraumatic and abrasion Ears: hearing grossly normal bilaterally Face and sinus: face symmetric Eyes General: appearance normal, both eyes and all related structures Conjunctivae: conjunctivae normal Sclera: sclerae normal EOM: EOM intact bilaterally Neck Neck: normal visual inspection Resp Effort & Inspection: normal respiratory effort and able to speak in complete sentences Auscultation: clear to auscultation bilaterally Cardio Rate: regular rate Rhythm: regular rhythm Heart Sounds: S1 normal, S2 normal and no murmurs GI Inspection: normal to inspection and incision (AquaCel dressing clean and dry) Palpation: soft, no hepatosplenomegaly and tender (Mild, diffuse postsurgical tenderness) Auscultation: normal bowel sounds External Female Exam: other (No significant bleeding noted) Extrem General: no calf tenderness Psych Appearance: grossly normal Mental Status: mental status grossly normal Speech and Movement: speech and movement normal Mood: congruent mood Affect: normal affect Attitude: cooperative Thought Process: normal Thought Content: normal Judgment: judgment good Discharge Plan Discharge Plan Patient Disposition: Home Provider Discharge Comment: Please review the written instructions you received when you were discharged from the hospital. Your follow-up appointment will be scheduled for 1 week after your and I look forward to seeing you then. If however in the meanwhile, you have any issues, concerns, or questions, please contact me either through the office phone at [phone], or via the patient portal. Discharge orders & Medications Prescriptions: New ibuprofen 600 mg Tablet 600 mg PO Q6H Qty: 30 2RF oxycodone 10 mg Tablet 10 mg PO Q6H PRN (Reason: Pain, Severe (7-10)) Qty: 15 0RF Continued [id number] oil 400 mcg-35 mg -25 mg-5 mg tablet,chewable 1 tab PO DAILY Follow up/Referrals: ProviderRalph [Primary Care Provider] - Alli Barnett MD [Physician] - Discharge Health Status Multidrug resistant organism: No MDRO Diet/Activity/Treatments Diet: Diet as Tolerated Activity: As tolerated Other treatments: [id number] Tylenol and/or ibuprofen may be used for additional pain relief. [id number] stool softeners and/or MiraLax may be used as needed for constipation. Skin/Wound/Dressing Care Report to your healthcare provider any signs of infection, such as:: chills, fever, increased pain, unusual drainage and unusual redness Dressing: Dressing will be removed at the time of your one-week postop visit. Visit Report/Discharge Packet Instructions: DI for , DI for and Nipple Soreness, DI for Prescription Opioid Use Discharge Data Primary Care Provider: ProviderRalph
== END 2023-09-23 12:25 | disposition home or self-care (01) | DRG 788 ==
PROVIDERS: Obstetrics & Gynecology; Admitting Provider Obstetrics & Gynecology; Referring Provider Obstetrics & Gynecology; Visit Provider Obstetrics & Gynecology
PROC: 10D00Z1 Extraction of Products of Conception, Low, Open Approach (ICD-10-PCS; CPT 59514; principal; 2023-09-21 20:00)
DX: O62.1 Secondary uterine inertia (principal); O76 Abnormality in fetal heart rate and rhythm complicating labor and delivery; O33.9 Maternal care for disproportion, unspecified; Z3A.41 41 weeks gestation of pregnancy; Z37.0 Single live birth; O99.824 Streptococcus B carrier state complicating childbirth; O48.0 Post-term pregnancy
CPT/HCPCS: 36415; 59050; 59200; 76815; 85025; 86850; 86900; 86901; G0379; J0290; J0690; J1170; J1200; J1885; J2250; J2405; J2704; J3010